=== PATIENT | female | born 1940 | race Caucasian/White ===

== ENCOUNTER 2016-05-19 19:38 | Outpatient (CLI) ==
[2016-05-19 19:59] VITALS: BMI 34.3
== END 2016-05-19 19:39 | disposition home or self-care (01) ==
LOC: AMBL 19:38
PROVIDERS: ATTEND Emergency Medicine
DX: S01.91XA Laceration without foreign body of unspecified part of head, initial encounter (principal); W05.0XXA Fall from non-moving wheelchair, initial encounter; Y92.129 Unspecified place in nursing home as the place of occurrence of the external cause

== ENCOUNTER 2016-05-19 19:47 | Emergency (ER) ==
--- NOTE | 2016-05-19 19:54 | ED.PDOC ---
General ED Provider: Dr. VIVIANA CHU Chief Complaint: Multiple Trauma Stated Complaint: Brought by ambulance, fell out of the wheel chaiir and hit the head, bleeding lacerated. Time Seen by Physician: 19:52 Primary Care Provider: SHIRLEY GALDAMEZ Nursing and Triage Documentation Reviewed and Agree: Yes Trauma/Injury Complaint Exam - Head Injury Complaint/Exam Location of Pain: Reports: Scalp, Forehead Mechanism of Injury: Reports: Trauma Symptoms Are: Still present Initial Severity: Mild Current Severity: Mild Character: Reports: Dull Aggravating: Reports: None Alleviating: Reports: None Associated Signs and Symptoms: Denies: Confusion, Memory loss, Seizure, Epistaxis, Dental malocclusion, Neck pain, Nausea, Vomiting Loss of Consciousness: None SDH Risk Factors: Present: None Cervical Spine Injury Risk Factors: Present: None Related Surgical History: Reports: None Immobilization Removed Post Exam: No Head Injury Findings: Absent: Hemotympanum, CSF rhinorrhea, Solis's sign, [place] eyes Focal Weakness: Present: RUE, RLE Gait: Unable Gag Reflex Present: Yes Finger to Nose: Abnormal Rhomberg Test Positive: No Babinski Sign: Positive Right, Negative Left Differential Diagnoses: Cervical Fracture, Intracranial Bleed, Sprain, Trauma Review of Systems - Review Of Systems Constitutional: Reports: No symptoms Eyes: Reports: No symptoms Ears, Nose, Mouth, Throat: Reports: No symptoms Respiratory: Reports: No symptoms Cardiac: Reports: No symptoms GI: Reports: No symptoms : Reports: No symptoms Musculoskeletal: Reports: No symptoms Skin: Reports: No symptoms Neurological: Reports: Headache Endocrine: Reports: No symptoms Hematologic/Lymphatic: Reports: No symptoms All Other Systems: Reviewed and Negative Past Medical History - Past Medical History Previously Healthy: No Endocrine: Reports: None Cardiovascular: Reports: Hypertension Respiratory: Reports: None Hematological: Reports: None Gastrointestinal: Reports: None Genitourinary: Reports: UTI, CKD Neuro/Psych: Reports: CVA Musculoskeletal: Reports: None Cancer: Reports: Colon - Surgical History General Surgical History: Reports: Unknown - Family History Family History: Reports: Unknown - Social History Smoking Status: Never smoker Hx Substance Use: No Alcohol Screening: None Physical Exam - Physical Exam Appearance: Ill-appearing, Obese Pain Distress: Mild Eyes: Conjunctiva clear ENT: Ears normal, Nose normal, Oropharynx normal Respiratory: Airway patent, Breath sounds clear, Breath sounds equal, Respirations nonlabored Cardiovascular: RRR, Pulses normal, No rub, No murmur GI/: Soft, Nontender, No masses, Bowel sounds normal, No Organomegaly Musculoskeletal: Normal strength, ROM intact, No edema, No calf tenderness Skin: Warm, Dry, Normal color Neurological: Sensation intact, Motor intact, Reflexes intact, Cranial nerves intact, Alert, Oriented Psychiatric: Affect appropriate, Mood appropriate Interpretation - Radiology Interpretation Radiology Interpretation By: Radiologist Radiology Results: Negative Exam Interpreted: CT Scan Procedures - Laceration/Wound Repair No standard instances Wound Description: Linear Wound Length (cm): 3 cm Wound Explored: Clean Wound Irrigated: Yes Wound Prep: Saline Wound Repaired With: Steri-strips Critical Care Note - Critical Care Note Total Time (mins): 0 Course - Course Orders, Labs, Meds: Orders Category Date Time Status CT CERVICAL SPINE W/O CONTRAST Stat RADS 05/19/16 19:[address] HEAD W/O CONTRAST Stat RADS 05/19/16 19:51 Completed Vital Signs: Temp Pulse Resp BP Pulse Ox 05/19/16 19:48 96.4 F L 74 18 179/87 H 96 Departure - Departure Time of Disposition: 20:51 Disposition: HOME SELF-CARE Discharge Problem: Laceration of scalp Qualifiers: Encounter type: initial encounter Qualifier Code: (S01.01XA) Laceration without foreign body of scalp, initial encounter Instructions: Laceration (ED), Fall Prevention for Older Adults (ED) Condition: Stable Pt referred to PMD for follow-up: Yes Additional Instructions: Daughter is in the room tylenol prn fall risk discussed Allergies/Adverse Reactions: Allergies olmesartan [From Benicar] Adverse Reaction (Verified 09/21/15 08:58) Home Medications: Ambulatory Orders Alfuzosin HCl [Uroxatral] 10 mg PO DAILY 09/17/15 Aspirin [Adult Low Dose Aspirin EC] 81 mg PO DAILY 09/17/15 Calcium Carbonate/Vitamin D3 [Calcium 600 + Vit D Tablet] 1 tab PO BID 09/17/15 Clonidine HCl 0.2 mg PO BID 09/17/15 Magnesium Oxide [Magnesium] 400 mg PO DAILY 09/17/15 Polyethylene Glycol 3350 [Miralax] 17 gm PO DAILY 09/17/15 Tramadol HCl [Ultram] 50 mg PO BID 09/17/15 Omeprazole [Prilosec] 20 mg PO QDAC 09/19/15 Amlodipine Besylate [Norvasc] 5 mg PO DAILY #1 tablet 09/28/15 Atorvastatin Calcium [Lipitor] 20 mg PO BEDTIME #1 tablet 09/28/15 Ropinirole HCl [Requip] 0.25 mg PO BEDTIME #1 tablet 09/28/15 Venlafaxine HCl [Effexor Xr] 37.5 mg PO BEDTIME #1 cap.er.24h 09/28/15 Disposition Discussed With: Patient, Family
[2016-05-19 19:59] VITALS: BP 179/87; TEMP 96.4; BMI 34.3
--- NOTE | 2016-05-19 20:32 | CT ---
EXAM: Noncontrast CT of the cervical spine HISTORY: Fall COMPARISON: 09/17/2015 TECHNIQUE: Noncontrast CT of the cervical spine FINDINGS: No cervical spine fracture or traumatic listhesis is seen. There is moderate disc height loss at C4 -C5 and moderate to severe disc height loss is C5-C6 and C6-C7. Mild disc height loss is seen at th e other cervical levels. Multilevel anterior osteophytes are present. Disc osteophyte complexes ar e seen at the C3-C4 through C6-C7 levels. There is unchanged 1.5 mm of anterolisthesis at C7-T1. T here is moderate multilevel facet arthropathy. No abnormal prevertebral soft tissue swelling is see n. IMPRESSION: No evidence of acute osseous injury to the cervical spine. Multilevel degenerative disc disease and facet arthropathy.
--- NOTE | 2016-05-19 20:41 | CT ---
EXAM: CT head without contrast. HISTORY: Trauma. PROCEDURE: Contiguous axial CT images of the head without contrast with coronal and sagittal reform ats. FINDINGS: Comparison made with CT head of 09/17/2015. There is diffuse cerebral atrophy. There is stable prominence of the third lateral ventricles consistent with a degree of atrophy. The basal c isterns are normal in size and configuration. No evidence of mass or midline shift. No intracrania l hemorrhage or evidence of new large vessel infarct. The old left parietal and left occipital infa rcts with ex vacuo dilatation of the left occipital horn. There are chronic small vessel ischemic c hanges in the white matter. No extra-axial fluid collection. The paranasal sinuses and mastoid air cells are well-aerated. No skull fracture. There is minimal soft tissue swelling in the right fro ntal scalp. Impression: No intracranial hemorrhage or skull fracture. Minimal soft tissue swelling in the right frontal scalp. 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 Chronic small vessel ischemic changes. Diffuse cerebral atrophy.
== END 2016-05-19 21:12 | disposition home or self-care (01) ==
LOC: ED 19:47
DX: S01.01XA Laceration without foreign body of scalp, initial encounter (principal); R51 Headache; W05.0XXA Fall from non-moving wheelchair, initial encounter
CPT/HCPCS: 99283